=== PATIENT | male | born 2000 | race Caucasian/White ===

== ENCOUNTER 2018-04-13 19:03 | Emergency (ER) | payer OTHER ==
--- NOTE | 2018-04-13 22:20 | ED ---
Bite Injury/Animal - HPI Summary HPI Summary: Patient complains of possible rabies exposure. Was camping in the [facility] Friday night in a hammock, [place], and then woke up in the morning with 2 possible small pinpricks in right wrist. Denies any symptoms. Medical history is none. - History of Current Complaint Chief Complaint: EDAnimalBite Stated Complaint: POSS BAT EXPOSER Time Seen by Provider: 04/13/18 19:49 Hx Obtained From: Patient Onset of Injury: Happened days ago Type of Bite: Wild Animal Severity Currently: None Pain Intensity: 0 Pain Scale Used: 0-10 Numeric Associated Signs And Symptoms: Positive: Negative - Allergies/Home Medications Allergies/Adverse Reactions: Allergies Allergy/AdvReac Type Severity Reaction Status Date / Time No Known Allergies Allergy Verified 04/13/18 19:33 Home Medications: Home Medications NK [No Home Medications Reported] 04/13/18 [History Confirmed 04/13/18] PMH/Surg Hx/FS Hx/Imm Hx Endocrine/Hematology History: Denies: Hx Anticoagulant Therapy Cardiovascular History: Denies: Hx Cardiac Arrest History: Denies: Hx Dialysis Neurological History: Denies: Hx CVA - Immunization History Immunizations Up to Date: Yes Infectious Disease History: No Infectious Disease History: Denies: Traveled Outside the [place] in Last 30 Days - Social History Alcohol Use: None Substance Use Type: Reports: None Smoking Status (MU): Never Smoked Tobacco Review of Systems Constitutional: Negative Eyes: Negative ENT: Negative Cardiovascular: Negative Respiratory: Negative Gastrointestinal: Negative Genitourinary: Negative Musculoskeletal: Negative Skin: Negative Neurological: Negative Psychological: Normal All Other Systems Reviewed And Are Negative: Yes Physical Exam - Summary Physical Exam Summary: 2 very small almost invisible possible scabs next whichever on volar surface of right wrist. No erythema, ecchymosis, deformity, swelling, extra warmth noted. No change in range of motion or function of right hand. Triage Information Reviewed: Yes Vital Signs On Initial Exam: Initial Vitals Temp Pulse Resp BP Pulse Ox 98.0 F 61 15 147/78 96 04/13/18 19:04 04/13/18 19:04 04/13/18 19:04 04/13/18 19:04 04/13/18 19:04 Vital Signs Reviewed: Yes Appearance: Positive: Well-Appearing Skin: Positive: Warm Head/Face: Positive: Normal Head/Face Inspection Eyes: Positive: Normal Neck: Positive: Supple Respiratory/Lung Sounds: Positive: Clear to Auscultation Cardiovascular: Positive: Normal Abdomen Description: Positive: Nontender Musculoskeletal: Positive: Normal Neurological: Positive: Normal Psychiatric: Positive: Normal AVPU Assessment: Alert - [place] Coma Scale Best Eye Response: 4 - Spontaneous Best Motor Response: 6 - Obeys Commands Best Verbal Response: 5 - Oriented Coma Scale Total: 15 Diagnostics - Vital Signs Vital Signs Temp Pulse Resp BP Pulse Ox 04/13/18 19:04 98.0 F 61 15 147/78 96 - Laboratory Lab Statement: Any lab studies that have been ordered have been reviewed, and results considered in the medical decision making process. Bite Injury Course/Dx - Course Course Of Treatment: Patient complains of possible rabies exposure. Was camping in the [facility] Friday night in a hammock, saw [place], and then woke up in the morning with 2 possible small pinpricks in right wrist. Denies any symptoms. Medical history is none. Physical exam:2 very small almost invisible possible scabs next whichever on volar surface of right wrist. No erythema, ecchymosis, deformity, swelling, extra warmth noted. No change in range of motion or function of right hand. Discussed patient with [facility] Debi Sylvester who stated patient did not meet rabies exposure criteria. Vital signs within normal limits. - Diagnoses Provider Diagnosis: Rabies exposure Discharge - Sign-Out/Discharge Documenting (check all that apply): Patient Departure - Discharge Plan Condition: Stable Disposition: HOME Patient Education Materials: Rabies (ED) Referrals: No Primary Care Phys,NOPCP [Primary Care Provider] - Additional Instructions: Per [facility] Patient does not meet criteria for rabies exposure. Return to the ED for any new or worsening symptoms - Billing Disposition and Condition Condition: STABLE Disposition: Home
[2018-04-13 22:37] VITALS: BP 138/68
== END 2018-04-13 22:36 | disposition home or self-care (01) ==
LOC: ED 19:03
DX: Z20.3 Contact with and (suspected) exposure to rabies (principal)
CPT/HCPCS: 99282